=== PATIENT | male | born 1935 | race Caucasian/White ===

== ENCOUNTER 2017-09-15 07:40 | Inpatient (IN) ==
[2017-09-15] MEDS ORDERED: Metoprolol Tartrate 25 MG Tablet PO SCH (08:45)
[2017-09-15] MEDS ORDERED: Chlorhexidine Gluconate 2% 1 Pack (2 Cloths) TOPICAL SCH (08:45)
[2017-09-15] MEDS ORDERED: Vancomycin Inj 1 GM/200 ML PIGGYBACK IV.SIG SCH (09:00)
[2017-09-15] MEDS ORDERED: Sodium Chlor 0.9% Inj 500 ML IV.SIG SCH (09:00)
[2017-09-15] MEDS ORDERED: Sodium Chlor 0.9% Inj 40 ML, Bupivacaine Liposo PF 1.3% Inj 20 ML P-ARTICULR SCH ×2 (09:00)
[2017-09-15] MEDS ORDERED: Sodium Chlor 0.9% Inj 60 ML, Bupivacaine Liposo PF 1.3% Inj 20 ML P-ARTICULR SCH ×2 (09:00)
[2017-09-15] MEDS ORDERED: Bupivacaine Liposomal PF 1.3% Inj 20 ML Vial ONE (09:19)
[2017-09-15] MEDS ORDERED: Propofol Inj 500 MG/50 ML Vial ONE (09:45)
[2017-09-15] MEDS ORDERED: Bupivacaine/Dextrose 0.75% Inj 2 ML Ampul ONE (10:08)
[2017-09-15] MEDS: Clindamycin 900 mg/NS Premix 900 MG/50 ML PIGGYBACK IV.SIG SCH ×2 (10:19→11:34)
[2017-09-15] MEDS: TRANEXAMIC ACID IV.SIG SCH ×2 (10:43→11:32)
[2017-09-15] MEDS: SODIUM CHLOR 0.9% IV.SIG SCH ×2 (10:43→11:32)
[2017-09-15] MEDS ORDERED: TRANEXAMIC ACID IV.SIG SCH (11:54)
[2017-09-15] MEDS ORDERED: SODIUM CHLOR 0.9% IV.SIG SCH (11:54)
[2017-09-15] MEDS ORDERED: Lidocaine PF 1% Inj 5 ML Syringe INFILTRATN ONE (12:00)
[2017-09-15] MEDS ORDERED: Phenylephrine/NS 1000 MCG/10ML Syringe IV.PUSH ONE (12:00)
[2017-09-15] MEDS ORDERED: Succinylcholine Inj 100 MG/5 ML Syringe IV.PUSH ONE (12:00)
[2017-09-15] MEDS: Tobramycin Sulfate 1,200 MG Vial (for ortho/sterile core) OTHER ONE ×2 (12:01→12:02)
[2017-09-15] MEDS ORDERED: Morphine Inj 30 MG/30 ML PCA.VIAL PCA PRN (12:50)
[2017-09-15] MEDS ORDERED: Naloxone Inj 0.4 MG/ML Vial IV.PUSH PRN (12:50)
[2017-09-15] MEDS ORDERED: Post-op Orders (for Pharmacy) OTHER STA (12:54)
[2017-09-15] MEDS ORDERED: Aluminum/Magnesium/Simethacone Susp 30 ML UDC PO PRN (12:54)
[2017-09-15] MEDS ORDERED: Zolpidem Tartrate 5 MG Tablet PO PRN (12:54)
[2017-09-15] MEDS ORDERED: Bisacodyl 10 MG Supp RECTAL PRN (12:54)
--- NOTE | 2017-09-15 13:51 | MP ---
cc: Vinh Archibald MD DATE OF OPERATION: 09/15/2017 PREOPERATIVE DIAGNOSIS: Osteoarthritis of the right knee with predominant involvement of patellofemoral joint. POSTOPERATIVE DIAGNOSIS: Osteoarthritis of the right knee with predominant involvement of patellofemoral joint. OPERATIVE PROCEDURES: 1. Total knee replacement arthroplasty of the right knee using [employer] components. Components are as follows: Femur 72.5 mm, tibia 75 mm with I-Beam stem, poly 12 mm standard, medium patella. 2. Partial patellectomy lateral margin of the patella. SURGEON: Vinh Archibald MD ANESTHESIA: Spinal. TECHNIQUE: After induction of spinal anesthesia, the patient's right lower extremity was thoroughly prepped with alcohol and ChloraPrep and draped in routine fashion. After application of Esmarch bandage, tourniquet was inflated to 300 mmHg. A mildly medial to midline anterior skin incision was made, deepened through subcutaneous tissue and fascia and medial parapatellar arthrotomy was carried out. The patient had obvious eburnated bone on bone between the lateral patellar facet and lateral femoral condyle with grooves. After debridement was carried out, the femoral canal was opened anterior to the posterior cruciate ligament and the distal femoral cutting guide set at 5 degrees were used to make the distal femoral cut. The AP and chamfer cuts were made for a 72.5 mm component. The proximal tibia osteotomized measuring 6 mm from the lower most portion of the medial tibial plateau. The cuts were all checked and assessed. There was no need for any particular soft tissue release here. A spacer block was used and the 10 mm spacer block fits nicely. The patella was examined and osteophytes were excised and the patient had a flattened, eburnated, grooved lateral facet. Undersurface of the patella was excised to expose bleeding cancellous bone. The lateral 6-7 mm of patella was then excised with the use of an oscillating saw and with sharp dissection. Patella was prepared for the trial. All trials were placed. Position, alignment, and stability were all good. Diluted Exparel injected all around the joint. Femoral canal plugged with bone. Using 2 units of Simplex cement, the tibial implant placed first, all excess cement removed and the femoral implant and the knee extended with a 12 mm insert. Patella was cemented following routine technique. Tourniquet was released. Hemostasis was obtained via cautery. Once the cement solidified, the knee was checked, trial insert was removed, joint was thoroughly lavaged and suctioned out and the 12 mm insert placed and clipped. Hemovac drain introduced through the suprapatellar pouch. Closure was carried out in mid flexion with interrupted Vicryl sutures, about 3 of them, and the rest closed with running #2 Quill, subcutaneous tissue with 2-0 Vicryl and the skin with a subcuticular Quill and Dermabond and adhesive dressing. The patient was transferred to the recovery room in satisfactory condition. The patient tolerated the procedure well. COMPLICATIONS: None. POSTOPERATIVE CONDITION: Satisfactory. PROGNOSIS: Good. ESTIMATED BLOOD LOSS: 75 mL. TOURNIQUET TIME: 58 minutes. MD EVELIN Ly/MABEL , 01:19 PM , 01:29 PM
[2017-09-15] MEDS: Sod Chloride 0.9% Inj 1,000 ML IV.CONT SCH ×2 (14:00→23:40)
--- NOTE | 2017-09-15 14:00 | XR ---
EXAM DATE: 09/15/2017 1:58 PM EDT AGE/SEX: 81 years / Male INDICATIONS: Post op right knee surgery. CLINICAL DATA: This is the patient's initial encounter. Patient reports that signs and symptoms have been present for 1 day and indicates a pain score of 0/10. MEDICAL/SURGICAL HISTORY: None. None. COMPARISON: No prior exams available for comparison. FINDINGS: Knee arthroplasty identified with tibial and femoral components well seated. The joint effusion, smal l amount of subcutaneous air and surgical drain are present as expected. CONCLUSION: Postop right total knee arthroplasty. Electronically signed by: Gaurang Vee MD 09/15/2017 1:59 PM EDT
[2017-09-15] MEDS: Ketorolac Inj 30 MG/ML (IVP) Vial IV.PUSH SCH ×2 (14:30→23:02)
[2017-09-15] MEDS ORDERED: Clindamycin Inj 600 MG/4 ML Vial ONE (14:33)
[2017-09-15] MEDS: Clindamycin 600 mg/NS Premix 600 MG/50 ML PIGGYBACK IV.SIG SCH ×2 (14:40→23:10)
--- NOTE | 2017-09-15 15:06 | P.CONIM ---
History of Present Illness Requesting Physician: Vinh Archibald Reason for Consult: Postoperative medical management Primary Care Provider: Bill Aquino MD Family Provider: Bill Aquino MD History of Present Illness: This is an 81-year-old male patient with past medical history which includes hypertension, hyperlipidemia, GERD, history of prostate cancer s/p prostatectomy , chronic kidney disease stage II, anemia, degenerative joint disease of bilateral knees. Patient underwent a right total knee arthroplasty with Dr. Archibald we have been consulted for assistance with postoperative medical management. Past medical history: hypertension, hyperlipidemia, GERD, history of prostate cancer, chronic kidney disease stage II, anemia, degenerative joint disease of bilateral knees Past surgical history: Bronchoscopy, cataract surgery, colonoscopy, destruction of benign lesion, EGD prostatectomy, right total hip replacement Family medical history: Unspecified mental disorder, prostate cancer Social history history: of social EtOH use denies current EtOH use, former smoker, to light denies illicit drug use Review of Systems All other systems reviewed negative except as stated in HPI [facility] - History History Provided By: Patient, Significant Other - Medical History Medical History: Medical History (Last Reviewed 09/15/17 @ 16:04 by Alyce Rod, PT) Arthritis GERD (gastroesophageal reflux disease) Hearing aid worn History of skin cancer Hypertension Normal colonoscopy Recurrent knee pain - Surgical History Surgical History: Surgical History (Last Reviewed 09/15/17 @ 16:04 by Alyce Rod PT) Hip joint replacement status History of lung biopsy Hx of cataract surgery Hx of prostatectomy - Tobacco History Second Hand Smoke Exposure: No Tobacco Use In Past 30 Days: No Smoking Status: Former smoker - Alcohol History How Often Do You Have a Drink Containing Alcohol: 4 or more times a week - Substance Use History Substance History: No History of Abuse Medications and Allergies Allergies Allergy/AdvReac Type Severity Reaction Status Date / Time clarithromycin Allergy Rash Verified 09/09/17 14:18 Penicillins Allergy Rash Verified 09/09/17 14:18 Home Medications Medication Instructions Recorded Confirmed Type Benefiber Clear SF (dextrin) 1 dose PO DAILY 09/09/17 09/15/17 History Vitamin B-12 2,500 mcg PO DAILY 09/09/17 09/15/17 History calcium citrate-vitamin D3 2 tab PO DAILY 09/09/17 09/15/17 History [Citracal Regular] cholecalciferol (vitamin D3) 2,000 unit PO DAILY 09/09/17 09/15/17 History [Vitamin D3] xdztqhkcfds-kjk-cfxnpyqje-vitC 2 cap PO DAILY 09/09/17 09/15/17 History [Glucosamine Complex-MSM] lansoprazole 30 mg PO DAILY 09/09/17 09/15/17 History snwflnyg-vpz-SO-lycopen-lutein 1 tab PO DAILY 09/09/17 09/15/17 History [Centrum Silver] naproxen sodium [Aleve] 220 mg PO DAILY 09/09/17 09/15/17 History pravastatin 20 mg PO HS 09/09/17 09/15/17 History ranitidine HCl 150 mg PO DAILY 09/09/17 09/15/17 History telmisartan [Micardis] 40 mg PO HS 09/09/17 09/15/17 History Active Medications: Active Medications Hydrocodone Bitart/Acetaminophen ([place] 5/325) 2 tab PO Q6H PRN PRN Reason: PAIN SCALE 6 TO 10 Al Hydrox/Mg Hydrox/Simethicone (Mag-Al Plus Susp Liq) 30 ml PO Q6H PRN PRN Reason: INDIGESTION Al Hydroxide/Mg Hydroxide (Milk Of Magnesia Liq) 30 ml PO BID PRN PRN Reason: Mild Constipation Bisacodyl (Dulcolax Supp) 10 mg RECTAL DAILY PRN PRN Reason: SEVERE CONSITIPATION Chlorhexidine Gluconate (Chlorhexidine 2% Cloth) 3 pack TOPICAL UNMANNED EQUIPMENT OPERATOR [facility] Stop: 09/18/17 08:45 Last Admin: 09/15/17 09:18 Dose: 3 pack Sodium Chloride 60 ml/ (Bupivacaine Liposome 20 ml) 0 ml P-ARTICULR ONCE [facility] Diphenhydramine HCl (Benadryl Inj) 25 mg IV.PUSH Q6H PRN PRN Reason: for itching Famotidine (Pepcid) 20 mg PO DAILY [facility] Lactated Ringer's (Lr 1000 Ml Inj) 1,000 mls @ 30 mls/hr IV.SIG .Q24H [facility] Stop: 09/18/17 08:45 Last Admin: 09/15/17 09:18 Dose: 30 mls/hr Sodium Chloride (Ns Inj) 500 mls @ 30 mls/hr IV.SIG .Q10H [facility] Stop: 09/18/17 08:45 Tranexamic Acid 973 mg/ Sodium (Chloride) 109.73 mls @ 200 mls/hr IV.SIG ONCE [facility] Stop: 09/16/17 08:59 Last Infusion: 09/15/17 12:05 Dose: Infused Tranexamic Acid 973 mg/ Sodium (Chloride) 109.73 mls @ 200 mls/hr IV.SIG ONCE [facility] Stop: 09/16/17 11:53 Clindamycin/Sodium Chloride (Cleocin 900 Mg/Ns Premix) 900 mg in 50 mls @ 100 mls/hr IV.SIG UNMANNED EQUIPMENT OPERATOR [facility] Stop: 09/19/17 08:59 Last Infusion: 09/15/17 12:08 Dose: Infused Vancomycin/Sodium Chloride (Vancomycin Inj) 1 gm in 200 mls @ 200 mls/hr IV.SIG UNMANNED EQUIPMENT OPERATOR [facility] Stop: 09/19/17 08:59 Last Infusion: 09/15/17 11:20 Dose: Infused Morphine Sulfate (Morphine Inj) 30 mg in 30 mls @ 0 mls/hr FINAL INSPECTOR UNSCH PRN PRN Reason: per FINAL INSPECTOR parameters Stop: 09/16/17 10:00 Clindamycin/Sodium Chloride (Cleocin 600 Mg/Ns Premix) 600 mg in 50 mls @ 100 mls/hr IV.SIG Q6H [facility] Stop: 09/16/17 09:29 Last Admin: 09/15/17 14:40 Dose: 100 mls/hr Sodium Chloride (Ns Inj) 1,000 mls @ 125 mls/hr IV.CONT .Q8H [facility] Last Admin: 09/15/17 14:00 Dose: 125 mls/hr Acetaminophen (Ofirmev Inj) 1,000 mg in 100 mls @ 400 mls/hr IV.SIG Q12H PRN PRN Reason: PAIN SCALE 1 TO 10 Vancomycin/Sodium Chloride (Vancomycin Inj) 1 gm in 200 mls @ 200 mls/hr IV.SIG Q12H [facility] Stop: 09/16/17 11:59 Ketorolac Tromethamine (Toradol Inj) 15 mg IV.PUSH Q8H [facility] Stop: 09/17/17 21:01 Last Admin: 09/15/17 14:30 Dose: 15 mg Lactulose (Lactulose Liq) 30 ml PO DAILY PRN PRN Reason: SEVERE CONSITIPATION Losartan Potassium (Cozaar) [address] [facility] Metoprolol Tartrate (Lopressor) 25 mg PO UNMANNED EQUIPMENT OPERATOR [facility] Stop: 09/18/17 08:45 Miscellaneous Information ([facility] Nursing Information) 0 each OTHER UNSCH PRN PRN Reason: SEE DOSE INSTRUCTIONS Miscellaneous Information ([facility] Nursing Information) 1 each OTHER UNSCH PRN PRN Reason: SEE LABEL COMMENTS Stop: 09/16/17 14:09 Multivitamins/Minerals (Theragran-M) 1 tab PO BID [facility] Stop: 11/14/17 20:59 Naloxone HCl (Narcan Inj) 0.4 mg IV.PUSH PRN PRN PRN Reason: Resp rate < 10 Ondansetron HCl (Zofran Odt) 4 mg SL Q6H PRN PRN Reason: NAUSEA OR VOMITING Pantoprazole Sodium (Protonix) 40 mg PO DAILY [facility] Povidone Iodine (Betadine 5% Antisepsis Kit) 1 applicatio EACH NARE UNMANNED EQUIPMENT OPERATOR [facility] Stop: 09/18/17 08:45 Last Admin: 09/15/17 09:18 Dose: 1 applicatio Povidone Iodine (Betadine 7.5% Scrub) 1 applicatio TOPICAL ONCE [facility] Stop: 09/19/17 08:59 Pravastatin Sodium (Pravachol) 20 mg PO HS [facility] Rivaroxaban (Xarelto) 10 mg PO Q24H [facility] Senna/Docusate Sodium (Daya-Colace) 1 tab PO BID [facility] Sennosides (Senokot) 17.2 mg PO BID PRN PRN Reason: Moderate Constipation Sodium Chloride (Ns Flush) 2 ml IV.FLUSH BID [facility] Sodium Chloride (Ns Flush) 2 ml IV.FLUSH PRN PRN PRN Reason: FLUSH AFTER USING IV ACCESS Tramadol HCl (Ultram) 50 mg PO Q6H PRN PRN Reason: PAIN LESS THAN 5 ON SCALE Zolpidem Tartrate (Ambien) 5 mg PO HS PRN PRN Reason: INSOMNIA Exam Vital signs: Vital Signs 09/15/17 09:05 09/15/17 09:39 Temperature 97.9 F Pulse Rate 75 68 Respiratory Rate 16 Blood Pressure 156/77 H Pulse Oximetry 100 100 Intake & Output 09/14/17 09/15/17 09/15/17 18:59 06:59 18:59 Intake Total 1519.46 / 1519.46 Output Total 20 / 20 Balance 1499.46 / 1499.46 Weight 97.3 kg Intake: IV 519.46 / 519.46 Cleocin 900 mg/NS Premix 900 mg 100 / 100 In 50 ml @ 100 mls/hr IV.SIG UNMANNED EQUIPMENT OPERATOR [facility] Rx#:[id number] Cyklokapron Inj 973 MG In NS 219.46 / 219.46 Inj 100 ML @ 200 mls/hr IV.SIG ONCE [facility] Rx#:[id number] Vancomycin Inj 1 gm In 200 ml @ 200 / 200 200 mls/hr IV.SIG UNMANNED EQUIPMENT OPERATOR [facility] Rx#:[id number] Anesthesia Amount 1000 / 1000 Output: Estimated Blood Loss 20 Other: Weight On Admission 97.3 kg Narrative: GENERAL: This is an elderly, well-developed patient, in no apparent distress. CARDIOVASCULAR: Regular rate and rhythm without murmurs, gallops, or rubs. RESPIRATORY: Clear to auscultation. Breath sounds equal bilaterally. No wheezes , rales, or rhonchi. GASTROINTESTINAL: Abdomen soft, non-tender, nondistended. Normal active bowel sounds MUSCULOSKELETAL: Extremities without clubbing, cyanosis, or edema. Postoperative dressing dry and intact NEURO: Drowsy postanesthesia. Moves all ext x4 Results - Labs CBC & Chem 7: 09/16/17 04:44 Labs: Laboratory Results - last 24 hr 09/15/17 08:40 Blood Type AB Positive Blood Type Recheck Not needed Antibody Screen Negative - Imaging Impressions Knee X-Ray 09/15/17 13:24 CONCLUSION: Postop right total knee arthroplasty. Assessment and Plan - Plan Osteoarthritis of right knee Patient is status post right total knee replacement and pressure patellectomy with Dr. Archibald Anticoagulation per orthopedic surgery Hypertension Continue patient's home ARB Hyperlipidemia Continue patient's home pravastatin 20 mg p.o. daily GERD Protonix PO daily History of prostate cancer with history of prostatectomy Chronic kidney disease stage II Chronic Avoid nephrotoxic agents - Attending Attestation Patient examined. Assessment and plan formulated with Jammie Wilkerson PA-C. I agree with the above.
[2017-09-15] MEDS: Multivitamin/Minerals Therapeutic Tablet PO SCH (23:01)
[2017-09-15] MEDS: Senna/Docusate Sodium 8.6/50 MG Tablet PO SCH (23:02)
[2017-09-16] MEDS: Vancomycin Inj 1 GM/200 ML PIGGYBACK IV.SIG SCH ×2 (00:45→12:19)
[2017-09-16] MEDS: Sod Chloride 0.9% Inj 1,000 ML IV.CONT SCH ×3 (03:00→20:38)
[2017-09-16] MEDS: Clindamycin 600 mg/NS Premix 600 MG/50 ML PIGGYBACK IV.SIG SCH ×2 (03:03→08:47)
[2017-09-16] MEDS: Ketorolac Inj 30 MG/ML (IVP) Vial IV.PUSH SCH ×3 (05:10→20:21)
[2017-09-16 05:31] LABS: Baso % (Auto) 0.3 % (0.0-2.0); Eos % (Auto) 0.2 % (0.0-4.0); Hematocrit 36.4 % (39.0-51.0); Hemoglobin 12.2 gm/dL (13.0-17.0); Lymph % (Auto) 15.8 % (9.0-44.0); Mean Corpuscular HGB Conc 33.5 % (32.0-36.0); Mean Corpuscular Hemoglobin 33.6 pg (27.0-34.0); Mean Corpuscular Volume 100.4 fL (80.0-100.0); Mean Platelet Volume 7.7 fL (7.0-11.0); Mono # (Auto) 0.7 th/mm3 (0.0-0.9); Neut # (Auto) 4.5 th/mm3 (1.8-7.7); Neut % (Auto) 72.7 % (16.0-70.0); Platelet Count 192 th/mm3 (150-450); Red Blood Count 3.62 mil/mm3 (4.50-5.90); Red Cell Distribution Width 13.7 % (11.6-17.2); White Blood Count 6.2 th/mm3 (4.0-11.0)
[2017-09-16] MEDS: Multivitamin/Minerals Therapeutic Tablet PO SCH ×2 (08:48→20:20)
[2017-09-16] MEDS: Senna/Docusate Sodium 8.6/50 MG Tablet PO SCH ×2 (08:48→20:20)
[2017-09-16] MEDS: Famotidine 20 MG Tablet PO SCH (08:48)
[2017-09-16] MEDS ORDERED: Rivaroxaban 10 MG Tablet PO SCH (13:00)
--- NOTE | 2017-09-16 13:54 | P.DCO ---
- Home Health Nursing Order: Wound care and dressing changes, Nursing assessment with vital signs - Home Health Aide Order: To assist in: Bathing and personal care - Certification I have seen patient Yang Castaneda on 09/16/17. My clinical findings support the need for the requested home health care services because: Limited ability to care for self, Impaired cognition/judgement I certify that my clinical findings support that this patient is homebound because: Post-op weakness, Unsafe to leave home unassisted
--- NOTE | 2017-09-16 14:09 | P.PNOP ---
Subjective Interval history: No complaints Physical Exam Vital signs: Vital Signs 09/15/17 14:30 09/15/17 15:00 09/15/17 16:35 Temperature 97.5 F L Pulse Rate 68 70 70 Respiratory Rate 16 16 18 Blood Pressure 117/59 L 138/65 143/74 H Pulse Oximetry 99 100 99 09/15/17 20:00 09/15/17 21:13 09/16/17 00:00 Temperature 97.6 F 97.8 F Pulse Rate 74 91 H Respiratory Rate 18 16 18 Blood Pressure 138/69 136/62 Pulse Oximetry 97 95 09/16/17 01:05 09/16/17 04:00 09/16/17 08:00 Temperature 97.8 F 97.6 F Pulse Rate 82 88 Respiratory Rate 18 18 20 Blood Pressure 136/64 122/57 L Pulse Oximetry 96 96 09/16/17 11:53 Temperature 97.1 F L Pulse Rate 80 Respiratory Rate 17 Blood Pressure 120/61 Pulse Oximetry 96 Intake & Output 09/15/17 09/16/17 09/16/17 18:59 06:59 18:59 Intake Total 1929.46 / 1929.46 1300 / 1300 Output Total 20 / 20 175 / 175 Balance 1909.46 / 1909.46 1125 / 1125 Weight 97.3 kg Intake: IV 569.46 / 569.46 1300 / 1300 NS Inj 1,000 ML @ 125 mls/hr IV 1000 / 1000 .CONT .Q8H [facility] Rx#:[id number] Cleocin 600 mg/NS Premix 600 mg 50 / 50 100 / 100 In 50 ml @ 100 mls/hr IV.SIG Q6H [facility] Rx#:[id number] Cleocin 900 mg/NS Premix 900 mg 100 / 100 In 50 ml @ 100 mls/hr IV.SIG RV DETAILER [facility] Rx#:[id number] Cyklokapron Inj 973 MG In NS 219.46 / 219.46 Inj 100 ML @ 200 mls/hr IV.SIG ONCE [facility] Rx#:[id number] Vancomycin Inj 1 gm In 200 ml @ 200 / 200 200 / 200 200 mls/hr IV.SIG Q12H [facility] Rx# :[id number] Oral 360 / 360 Anesthesia Amount 1000 / 1000 Output: Urine 100 / 100 Estimated Blood Loss 20 / 20 Wound Drainage 75 / 75 Right Knee Hemovac 75 / 75 Other: Weight On Admission 97.3 kg Narrative: He is in bed. He is awake alert and oriented. Dressings are intact. Drain is out. He moves his toes well. He is able to straight leg raise as well as bend the knee. - Urinary Catheter Management 125 Cath placed during this visit: no Results - Labs CBC & Chem 7: 09/16/17 04:44 Laboratory Results - last 24 hr 09/16/17 04:44 WBC 6.2 RBC 3.62 L Hgb 12.2 L Hct 36.4 L MCV 100.4 H MCH 33.6 MCHC 33.5 RDW 13.7 Plt Count 192 MPV 7.7 Neut % (Auto) 72.7 H Lymph % (Auto) 15.8 Cataño % (Auto) 11.0 H Eos % (Auto) 0.2 Baso % (Auto) 0.3 Neut # (Auto) 4.5 Lymph # (Auto) 1.0 Cataño # (Auto) 0.7 Eos # (Auto) 0.0 Baso # (Auto) 0.0 WBC Differential . Differential Comment Auto diff final - Imaging Postop x-rays show good position and alignment and fixation of total knee replacement arthroplasty. Assessment and Plan - Assessment and Plan Hospitalist wants Barbosa catheter to stay in today because of low urine output for closer monitoring. Patient also has history of prostatectomy and difficult catheterization and therefore it is probably best to stay until tomorrow. Hopefully with the Flomax we have started to be able to pee. If not we will add to send him home with the catheter for a couple of weeks. Situation discussed with Dr. Schwab.
--- NOTE | 2017-09-16 14:43 | P.PNIM ---
Subjective Interval history: Pt has NO new complaints. Nursing relates that the pt was confused this AM on PLASTIC CARD GRADER CARDROOM. PLASTIC CARD GRADER CARDROOM was stopped. Physical Exam Vital signs: 09/16/17 04:00 09/16/17 08:00 09/16/17 11:53 Temperature 97.8 F 97.6 F 97.1 F L Pulse Rate 82 88 80 Respiratory Rate 18 20 17 Blood Pressure 136/64 122/57 L 120/61 Pulse Oximetry 96 96 96 Narrative: GENERAL: NAD CARDIOVASCULAR: Regular rate and rhythm without murmurs, gallops, or rubs. RESPIRATORY: Clear to auscultation. Breath sounds equal bilaterally. No wheezes , rales, or rhonchi. GASTROINTESTINAL: Abdomen soft, non-tender, nondistended. Normal active bowel sounds MUSCULOSKELETAL: Extremities without clubbing, cyanosis, or edema. NEURO: Alert & Oriented x3, ROD. - Urinary Catheter Management 125 Cath placed during this visit: no Results - Labs CBC & Chem 7: 09/16/17 04:44 Assessment and Plan - Assessment (1) S/P TKR (total knee replacement) Code(s): Z96.659 - Presence of unspecified artificial knee joint Status: Acute - Plan Osteoarthritis of right knee - s/p right TKA performed by Dr. Archibald 09/15/17 - norco/toradol prn - PT - discharge to home with [facility] 09/17/17 Decreased urine outpt - continued IVFs - continue guerrero to measure I/Os - IV lasix 20mg x once - reassess in AM Hypertension Continue patient's home ARB Hyperlipidemia Continue patient's home pravastatin 20 mg p.o. daily GERD Protonix PO daily History of prostate cancer with history of prostatectomy Chronic kidney disease stage II - Avoid nephrotoxic agents (1) S/P TKR (total knee replacement) Qualifiers: Laterality: right Qualified Code(s): Z96.651 - Presence of right artificial knee joint
[2017-09-17] MEDS: Ketorolac Inj 30 MG/ML (IVP) Vial IV.PUSH SCH (04:06)
[2017-09-17] MEDS: Famotidine 20 MG Tablet PO SCH (08:45)
[2017-09-17] MEDS: Multivitamin/Minerals Therapeutic Tablet PO SCH (08:45)
[2017-09-17] MEDS: Senna/Docusate Sodium 8.6/50 MG Tablet PO SCH (08:45)
[2017-09-17] MEDS: Sod Chloride 0.9% Inj 1,000 ML IV.CONT SCH (08:46)
== END 2017-09-17 14:45 | disposition home health service (06) ==
LOC: HSDC 07:40 → EDSTATUS 10:00 → N06 16:02
PROVIDERS: ADMIT Orthopaedic Surgery; ATTEND Orthopaedic Surgery